=== PATIENT | female | born 1990 | race Caucasian/White ===

== ENCOUNTER 2021-06-27 11:17 | Emergency (ER) | payer OTHER ==
--- OUTSIDE RECORDS SUMMARY | 2021-06-27 11:19 | XMS REPORT | Continuity of Care Document ---
:1990 Author Organization [facility] t Address [address] [place] [place] [address] Care Team Providers Name Role Phone Dallas HAYS Attending Clinician Shalonda Rand MD Attending Clinician Problems This patient has no known problems. Allergies, Adverse Reactions, Alerts This patient has no known allergies or adverse reactions. Medications This patient has no known medications. Procedures This patient has no known procedures. Encounters Start End Encounter Admission Attending Care Care Encounter Source Date/Time Date/Time Type Type Clinicians Facility Department ID 2020-11-30 2020-11-30 Refill DILIP Haynes [id number] 00:00:00 00:00:00 Alejandra Granados [id number] [place] [id number] [place] [phone] nal 134 Building 2020-11-10 2020-11-10 Office Giorgi NHLUCHO [id number] 15:24:51 16:42:03 Visit Gladys Granados [id number] [place] [id number] [place] [phone] [facility] 134 [facility] Results This patient has no known results.
--- NOTE | 2021-06-27 17:16 | ER ---
Nurse's Notes [facility] Name: Cindi Cruz Age: 31 yrs Sex: Female : 1990 Arrival Date: 06/27/2021 Time: 11:20 Bed Waiting Private MD: Diagnosis: Presentation: 06/27 12:39 Chief complaint: Patient states: COVID + x 6 days, increased shortness of breath x 2 jl7 days. Coronavirus screen: Vaccine status: Patient reports being unvaccinated. cough unrelated to allergies, shortness of breath, Client presents with at least one sign or symptom that may indicate coronavirus-19. Standard/surgical mask placed on the client. Provider contacted for isolation considerations. Client reports previous positive COVID test result. Date of collection: June 22, 2021. Ebola Screen: No symptoms or risks identified at this time. Initial Sepsis Screen: Does the patient meet any 2 criteria? No. Patient's initial sepsis screen is negative. Does the patient have a suspected source of infection? No. Patient's initial sepsis screen is negative. Risk Assessment: Do you want to hurt yourself or someone else? Patient reports no desire to harm self or others. Onset of symptoms was June 23, 2021. 12:39 Method Of Arrival: Ambulatory jl7 12:39 Acuity: MIRANDA 3 jl7 Triage Assessment: 12:42 General: Appears in no apparent distress. uncomfortable, Behavior is calm, cooperative, jl7 appropriate for age. Pain: Denies pain. Neuro: Level of Consciousness is awake, alert, obeys commands, Oriented to person, place, time, situation. Cardiovascular: Patient's skin is warm and dry. Respiratory: Reports shortness of breath at rest cough that is Airway is patent Respiratory effort is even, unlabored, Respiratory pattern is regular, symmetrical, Onset: The symptoms/episode began/occurred x 5 days, Derm: Skin is pink, warm \T\ dry. BUSINESS TRANSFORMATION MANAGER: 12:42 LMP N/A - control method jl7 Historical: - Allergies: 12:42 PENICILLINS; jl7 - Home Meds: 12:42 Metformin Oral [Active]; Spironolactone Oral [Active]; Fluoxetine Oral [Active]; jl7 - PMHx: 12:42 PCOS; jl7 - PSHx: 12:42 Bilateral shoulders; jl7 - Immunization history:: Adult Immunizations up to date, Client reports having NOT received the Covid vaccine. - Social history:: Smoking status: Patient denies any tobacco usage or history of. Vital Signs: 12:39 BP 123 / 76; Pulse 93; Resp 17; Temp 98.5(O); Pulse Ox 94% on R/A; Weight 81.65 kg; jl7 Height 5 ft. 7 in. (170.18 cm); Pain 0/10; 12:39 Body Mass Index 28.19 (81.65 kg, 170.18 cm) jl ED Course: 11:20 Patient arrived in ED. am2 12:42 Triage completed. jl7 12:42 Arm band placed on right wrist. Patient placed in waiting room, Patient notified of [facility] wait time. 14:17 Note: XRAY CALLED OUT FOR THE PT MULTIPLE TIMES IN ED WAITING AREA, NO RESPONSE. md1 16:50 Patient's name was called from ER [facility] [employer] [employer]. No response. iw 16:59 [facility] fabian 16:59 Rupesh Alexander MD is Attending Physician. frank 17:10 Patient's name was called from ER [employer]. No response. iw Administered Medications: No medications were administered Outcome: 17:15 Patient left the ED. [facility] Signatures: Aníbal Hernandez PA PA jmm Williams, Irene, RN JAYDON iw Jia Bright RN RN jlRylee Chisholm am2 Aura Hays md1 Corrections: (The following items were deleted from the chart) 12:43 12:42 Allergies: No Known Allergies; [place] [id number] 12:43 12:42 Allergies: Tetanus Vaccines \T\ Toxoid; [place] [id number] 12:43 12:42 PMHx: Diabetes mellitus; [place] [id number]
[2021-06-27 17:48] VITALS: BP 123/76; TEMP 98.5; O2SAT 94
== END 2021-06-27 17:15 | disposition left against medical advice (07) ==
LOC: ER 11:17
DX: Z02.9 Encounter for administrative examinations, unspecified (principal)
CPT/HCPCS: 99281

== ENCOUNTER 2021-06-29 13:02 | Inpatient (IN) | payer OTHER ==
--- OUTSIDE RECORDS SUMMARY | 2021-06-29 13:05 | XMS REPORT | Continuity of Care Document ---
:[address] [facility] t Address [address] [place] [place] [address] Care Team Providers Name Role Phone Dallas [...] Department ID 2020-11-30 2020-11-30 Refill DILIP Haynes [id number] 00:00:00 00:00:00 Alejandra Granados [id number] [place] [id number] [place] [phone] nal 134 Building 2020-11-10 2020-11-10 Office Giorgi LALUCHO [id number] 15:24:51 16:42:03 Visit Gladys Granados [id number] [place] [id number] [place] [phone] [facility] 134 [facility] Results This patient has no known results.
[2021-06-29] MEDS ORDERED: ACETAMINOPHEN 500 MG TAB ONE (13:44)
--- NOTE | 2021-06-29 13:57 | RAD REPORT ---
EXAM DESCRIPTION: RAD - Chest Single View - 06/29/2021 1:49 pm CLINICAL HISTORY: DYSPNEA Chest pain. COMPARISON: Chest Pa And Lat (2 Views) dated 11/19/2019 FINDINGS: Portable technique limits examination quality. Moderate bilateral pulmonary opacities are present, greater on the right. Findings likely represent i nfection/pneumonia. The heart is normal in size. No displaced fractures.
[2021-06-29 14:11] LABS: Absolute Lymphocytes (CBC) 0.7 K/uL (0.7-4.9); Basophils % 0.5 % (0-1.3); Hematocrit 42.1 % (36.0-45.0); Lymphocytes % 16.4 % (15.3-44.8); MPV 7.8 fL (7.6-11.3); RBC Red Blood Cell Count 4.99 M/uL (3.86-4.86)
[2021-06-29 14:16] LABS: Protime INR 1.03
[2021-06-29 14:20] LABS: ALT/SGPT 22 U/L (12-78); AST/SGOT 27 U/L (15-37); Albumin 2.7 g/dL (3.4-5.0); Alkaline Phosphatase 33 U/L (45-117); BUN Blood Urea Nitrogen 6 mg/dL (7-18); Bicarbonate 28 mmol/L (21-32); Bilirubin Direct 0.2 mg/dL (0-0.2); Bilirubin Total 0.4 mg/dL (0.2-1.0); Glucose Level 106 mg/dL (74-106); Lipase 183 U/L (73-393); Potassium 3.4 mmol/L (3.5-5.1); Protein, Total 7.7 g/dL (6.4-8.2); Sodium Level 137 mmol/L (136-145)
[2021-06-29 14:37] LABS: Troponin (Emerg Dept Use Only) < 0.02 ng/mL (0.0-0.045)
--- NOTE | 2021-06-29 15:06 | RAD REPORT ---
EXAM DESCRIPTION: CT - Chest For Pe Angio - 06/29/2021 2:49 pm CLINICAL HISTORY: Chest pain. DYSPNEA COMPARISON: No comparisons TECHNIQUE: CT angiogram of the pulmonary arteries was performed with MIP. All CT scans are performed using dose optimization technique as appropriate and may include automated exposure control or mA/KV adjustment according to patient size. FINDINGS: No evidence of pulmonary thromboembolism. No acute aortic finding demonstrated. There is extensive airspace opacity bilaterally greatest in the lower lobes posteriorly most compatib le with pulmonary infection / pneumonia. No significant pericardial or pleural fluid. No concerning bony finding. IMPRESSION: No evidence of pulmonary thromboembolism. Extensive airspace opacity in both inferior lungs is most compatible with pulmonary infection.
--- NOTE | 2021-06-29 16:23 | ER ---
Nurse's Notes [facility] Name: Cindi Cruz Age: 31 yrs Sex: Female : 1990 Arrival Date: 06/29/2021 Time: 13:10 Bed 30 Private MD: Diagnosis: Coronavirus infection, unspecified;Pneumonia due to SARS-associated coronavirus;Hypoxia Presentation: 06/29 13:10 Chief complaint: EMS states: Diagnosed with COVID on in ED. O2 RA at home was ss 85%. Pt c/o lethargy and fatigue. 91% on 6L NC. 125 mg solu-medrol given en route to ED by EMS. Coronavirus screen: Client denies travel out of the [place] in the last 14 days. Ebola Screen: Patient denies exposure to infectious person. Patient denies travel to an Ebola-affected area in the 21 days before illness onset. Initial Sepsis Screen:. Risk Assessment: Do you want to hurt yourself or someone else? Patient reports no desire to harm self or others. Onset of symptoms was June 22, 2021. 13:10 Method Of Arrival: EMS: [facility] ss 13:10 Acuity: MIRANDA 2 ss 13:12 Care prior to arrival: IV initiated. 22 GA, in the left hand, Glucose check: 112. ss 13:27 Initial Sepsis Screen: Does the patient meet any 2 criteria? RR > 20 per min. No. ss Patient's initial sepsis screen is negative. Does the patient have a suspected source of infection? No. Patient's initial sepsis screen is negative. Historical: - Allergies: 13:12 PENICILLINS; ss - PMHx: 13:12 PCOS; ss - PSHx: 13:12 Bilateral shoulders; ss - Immunization history:: Adult Immunizations up to date, Client reports having NOT received the Covid vaccine. - Social history:: Smoking status: Patient denies any tobacco usage or history of. Screenin:13 Abuse screen: Denies threats or abuse. Denies injuries from another. Nutritional ld1 screening: No deficits noted. Tuberculosis screening: No symptoms or risk factors identified. Fall Risk None identified. Assessment: 13:13 General: Appears in no apparent distress. uncomfortable, Behavior is calm, cooperative, ld1 appropriate for age, drowsy. Pain: Denies pain. Neuro: Level of Consciousness is awake, alert, obeys commands, Oriented to person, place, time, situation, Appropriate for age. Cardiovascular: Capillary refill < 3 seconds Patient's skin is warm and dry. Rhythm is regular. Respiratory: Airway is patent Respiratory effort is even, labored, Respiratory pattern is regular, symmetrical, Breath sounds are diminished bilaterally. GI: Abdomen is flat, non-distended. : No signs and/or symptoms were reported regarding the genitourinary system. EENT: No signs and/or symptoms were reported regarding the EENT system. Derm: No signs and/or symptoms reported regarding the dermatologic system. Musculoskeletal: No signs and/or symptoms reported regarding the musculoskeletal system. 13:58 Reassessment: Patient appears in no apparent distress at this time. Patient and/or ld1 family updated on plan of care and expected duration. Pain level reassessed. 15:14 Reassessment: Patient appears in no apparent distress at this time. No changes from ld1 previously documented assessment. Patient and/or family updated on plan of care and expected duration. Pain level reassessed. Vital Signs: 13:13 BP 113 / 72; Pulse 83; Resp 22; Temp 99.6(O); Pulse Ox 89% on 6 lpm NC; Weight 79.83 ld1 kg; Height 5 ft. 7 in. (170.18 cm); Pain 0/10; 13:16 BP 113 / 72; Pulse 85; Resp 25; Temp 98.6(O); Pulse Ox 89% on 6 lpm NC; Weight 79.83 ss kg; Height 5 ft. 7 in. (170.18 cm); 13:58 BP 117 / 64; Pulse 83; Resp 22; Pulse Ox 90% on 10 lpm NC; ld1 15:14 BP 104 / 56; Pulse 67; Resp 20; Temp 98.7(O); Pulse Ox 94% on 10 lpm NC; ld1 13:16 Body Mass Index 27.57 (79.83 kg, 170.18 cm) ss 13:58 Pt on Hi Lance NC at 10LPM ld1 ED Course: 13:10 Patient arrived in ED. ss 13:11 Sendy Muñoz FNP-C is [facility]. kb 13:11 Rupesh Alexander MD is Attending Physician. kb 13:12 Triage completed. ss 13:12 Arm band placed on right wrist. ss 13:13 Patient has correct armband on for positive identification. Bed in low position. Call ld1 light in reach. Side rails up X2. engine monitor on. Pulse ox on. NIBP on. Door closed. Noise minimized. Warm blanket given. 13:13 No provider procedures requiring assistance completed. Maintain EMS IV. Dressing ld1 intact. Good blood return noted. Site clean \T\ dry. Gauge \T\ site: 20G LH. 13:13 Oxygen administration via nasal cannula \T\ 6L/min. ld1 13:49 CXR XRAY In Process Unspecified. EDMS 13:58 Inserted saline lock: 20 gauge in right antecubital area, using aseptic technique. ld1 Blood collected. 14:48 CT Chest For PE Angio In Process Unspecified. EDMS 16:21 Sumanth Woods MD is Hospitalizing Provider. kb 06/30 07:02 Quentin Smith, RN is Primary Nurse. bp Administered Medications: 06/29 13:28 Not Given (recieved prior to arrivall): SOLU-Medrol (methylPrednisoLONE) 125 mg IVP onceld1 Outcome: 16:22 Decision to Hospitalize by Provider. kb 06/30 16:17 Patient left the ED. iw Signatures: Dispatcher [employer] EDMS Sendy Muñoz, BRAND LEADER-C BRAND LEADER-Macie Leon, JAYDON INTERIANO Ashlyn Villarreal RN RN Quentin Smith, JAYDON INTERIANO bp Melly Canas, JAYDON RN ld1
--- NOTE | 2021-06-29 16:23 | EDPHYS ---
Physician Documentation [facility] Name: Cindi Cruz Age: 31 yrs Sex: Female : 1990 Arrival Date: 06/29/2021 Time: 13:10 Bed 30 Private MD: ED Physician Rupesh Alexander HPI: 06/29 15:38 This 31 yrs old Female presents to ER via EMS with complaints of Shortness Of kb Breath. 15:38 The patient has shortness of breath at rest. Duration: The symptoms are continuous. The kb patient has not experienced similar symptoms in the past. The patient has not recently seen a physician. 15:39 Onset: The symptoms/episode began/occurred 8 day(s) ago. The patient's shortness of kb breath is aggravated by nothing, is alleviated by nothing. Associated signs and symptoms: Pertinent positives: non-productive cough, fever. Severity of symptoms: At their worst the symptoms were moderate in the emergency department the symptoms are unchanged. Patient reports she was diagnosed with Covid on . Reports shortness of breath is gotten worse since then. EMS reports oxygen 85% on room air upon their arrival. Patient 88% on 6 L on initial assessment.. Historical: - Allergies: 13:12 PENICILLINS; ss - PMHx: 13:12 PCOS; ss - PSHx: 13:12 Bilateral shoulders; ss - Immunization history:: Adult Immunizations up to date, Client reports having NOT received the Covid vaccine. - Social history:: Smoking status: Patient denies any tobacco usage or history of. ROS: 15:38 Constitutional: Negative for fever, chills, and weight loss. kb 15:38 Respiratory: Positive for cough, dyspnea on exertion, shortness of breath, Negative for hemoptysis, orthopnea, pleurisy, sputum production, wheezing. 15:38 All other systems are negative. Exam: 15:38 Constitutional: This is a well developed, well nourished patient who is awake, alert, kb and in no acute distress. Head/Face: Normocephalic, atraumatic. ENT: Moist Mucous membranes Cardiovascular: Regular rate and rhythm with a normal S1 and S2. No gallops, murmurs, or rubs. No pulse deficits. Abdomen/GI: Soft, non-tender. No distention Skin: Warm, dry with normal turgor. Normal color. MS/ Extremity: Pulses equal, no cyanosis. Neurovascular intact. Full, normal range of motion. Neuro: Awake and alert, GCS 15, oriented to person, place, time, and situation. Moves all extremities. Normal gait. Psych: Awake, alert, with orientation to person, place and time. Behavior, mood, and affect are within normal limits. 15:38 Respiratory: moderate respiratory distress is noted, Respirations: labored breathing, Breath sounds: are clear throughout. Vital Signs: 13:13 BP 113 / 72; Pulse 83; Resp 22; Temp 99.6(O); Pulse Ox 89% on 6 lpm NC; Weight 79.83 ld1 kg; Height 5 ft. 7 in. (170.18 cm); Pain 0/10; 13:16 BP 113 / 72; Pulse 85; Resp 25; Temp 98.6(O); Pulse Ox 89% on 6 lpm NC; Weight 79.83 ss kg; Height 5 ft. 7 in. (170.18 cm); 13:58 BP 117 / 64; Pulse 83; Resp 22; Pulse Ox 90% on 10 lpm NC; ld1 15:14 BP 104 / 56; Pulse 67; Resp 20; Temp 98.7(O); Pulse Ox 94% on 10 lpm NC; ld1 13:16 Body Mass Index 27.57 (79.83 kg, 170.18 cm) ss 13:58 Pt on Hi Lance NC at 10LPM ld1 MDM: 13:11 Patient medically screened. 13:31 Data reviewed: vital signs, nurses notes. Data interpreted: Pulse oximetry: on room air abdullahi Interpretation: hypoxia. Plan: O2 by NC applied. ED course: Pt placed on High Flow O2. Pt 93% on 10L. 15:25 Counseling: I had a detailed discussion with the patient and/or guardian regarding: the historical points, exam findings, and any diagnostic results supporting the discharge/admit diagnosis, lab results, radiology results, the need to transfer to another facility, no covid bed available. 16:20 Physician consultation: Juan C LUKE was contacted at 16:20, regarding admission, patient's condition, and will see patient in ED, shortly. ED course: No COVID ICU at [facility]. . 06/29 13:14 Order name: BMP kb 06/29 13:14 Order name: Blood Culture Adult (2) kb 06/29 13:14 Order name: C-Reactive Protein kb 06/29 13:14 Order name: CBC with Diff kb 06/29 13:14 Order name: D-Dimer; Complete Time: 14:28 kb 06/29 13:14 Order name: Ferritin; Complete Time: 16:32 kb 06/29 13:14 Order name: LFT's; Complete Time: 16:32 kb 06/29 13:14 Order name: Lactate; Complete Time: 16:05 kb 06/29 13:14 Order name: Lipase; Complete Time: 16:32 kb 06/29 13:14 Order name: PT-INR; Complete Time: 14:28 kb 06/29 13:14 Order name: Procalcitonin; Complete Time: 14:50 kb 06/29 13:14 Order name: Ptt, Activated; Complete Time: 14:28 kb 06/29 13:14 Order name: Troponin (emerg Dept Use Only); Complete Time: 16:32 kb 06/29 13:15 Order name: Basic Metabolic Panel; Complete Time: 16:32 EDMS 06/29 13:14 Order name: BIPAP: High flow kb 06/29 13:14 Order name: CXR XRAY; Complete Time: 13:58 kb 06/29 13:14 Order name: EKG; Complete Time: 13:15 kb 06/29 13:15 Order name: Blood Culture EDMS 06/29 13:15 Order name: C-Reactive Protein; Complete Time: 16:32 EDMS 06/29 13:15 Order name: CBC with Automated Diff; Complete Time: 14:17 EDMS 06/29 14:28 Order name: CT Chest For PE Angio; Complete Time: 15:16 kb 06/29 16:32 Order name: CONS Physician Consult EDMS 06/29 21:34 Order name: Lactate Sepsis 2 HR Follow-up; Complete Time: 07:10 EDMS 06/30 04:43 Order name: CBC with Automated Diff; Complete Time: 07:10 EDMS 06/30 05:09 Order name: Basic Metabolic Panel; Complete Time: 07:10 EDMS 06/30 05:09 Order name: Lipid Profile; Complete Time: 07:10 EDMS 06/30 05:09 Order name: C-Reactive Protein; Complete Time: 07:10 EDMS 06/30 05:09 Order name: Ferritin; Complete Time: 07:10 EDMS 06/29 13:14 Order name: Droplet/Contact Precautions; Complete Time: 13:18 kb 06/29 13:14 Order name: EKG - Nurse/Tech; Complete Time: 13:51 kb 06/29 13:14 Order name: IV Start; Complete Time: 13:18 kb 06/29 13:14 Order name: Labs collected and sent; Complete Time: 13:28 kb 06/29 13:14 Order name: O2 Per Protocol; Complete Time: 13:18 kb 06/29 13:14 Order name: O2 Sat Monitoring; Complete Time: 13:18 kb Administered Medications: 13:28 Not Given (recieved prior to arrivall): SOLU-Medrol (methylPrednisoLONE) 125 mg IVP onceld1 Disposition Summary: 06/29/21 16:22 Hospitalization Ordered Hospitalization Status: Inpatient Admission kb Provider: Sumanth Woods Condition: Stable kb Problem: new kb Symptoms: are unchanged kb Bed/Room Type: Standard kb Location: Telemetry/MedSurg (Inpatient)(06/30/21 12:55) iw Room Assignment: 417(06/30/21 12:55) iw Diagnosis - Coronavirus infection, unspecified kb - Pneumonia due to SARS-associated coronavirus kb - Hypoxia kb Forms: - Medication Reconciliation Form kb - SBAR form kb Addendum: 07/03/2021 15:07 Co-signature as Attending Physician, Rupesh Alexander MD I agree with the assessment and c urena plan of care. Signatures: Dispatcher [employer] EDCT Sendy Muñoz FNP-C CALL CENTER AGENT-CkRupesh Jackson MD MD cha Williams, Irene, RN JAYDON Ashlyn Villarreal, JAYDON INTERIANO ss Juan C Mckeon PA PA [id number] Anastasia Brand RN RN Melly Canas RN RN ld1 Corrections: (The following items were deleted from the chart) 06/29 15:40 15:39 Patient reports she was diagnosed with Covid on . Reports shortness of kb breath is gotten worse since then.. kb 20:17 16:22 Telemetry/MedSurg (Inpatient) kb 20:17 16:22 kb 06/30 12:06/29 20:17 [facility] ER HOLD cg iw 06/30 1206/29 20:17 ERHOLD- cg iw
[2021-06-29 16:25] LABS: Ferritin 286.2 ng/mL (8-388)
--- NOTE | 2021-06-29 16:43 | P.HP ---
Certification for Inpatient Patient admitted to: Inpatient With expected LOS: >2 Midnights Patient will require the following post-hospital care: Other (Home oxygen) Practitioner: I am a practitioner with admitting privileges, knowledge of patient current condition, hospital course, and medical plan of care. Services: Services provided to patient in accordance with Admission requirements found in Title 42 Section 412.3 of the Code of Federal Regulations Patient History Date of Service: 06/29/21 Primary Care Provider: Colrain Erik Reason for admission: Covid pneumonia with hypoxia History of Present Illness: This is a 31-year-old female that presented to the emergency room with increased shortness of breath over the last several days. Was diagnosed with Covid this past and since then has been getting progressively worse. Patient upon arrival to the emergency room was 85% room air. Patient was put on oxygen and worked up for Covid. Was found to have Covid pneumonia on both chest x-ray and CT without evidence of pulmonary embolism. Labs revealed a sodium of 137, potassium 3.4, chloride 102, bicarb 28, BUN 6, creatinine 0.81, glucose 106. Patient had a white cell count of 4.4, hemoglobin of 14.2, hematocrit 42.1, platelet 193. D-dimer was 915, CRP was 110, lactate 3.3. On nasal cannula therapy patient remained in the high 80s. Patient was placed on high flow oxygen at that time with marked improvement into the mid 90s. Medicine was consult that time for admission. Review of Systems General: Fever, Chills Eyes: Unremarkable ENT: Unremarkable Respiratory: Cough, Shortness of Breath, SOB with Excertion Cardiovascular: Unremarkable Gastrointestinal: Vomiting Musculoskeletal: Unremarkable Integumentary: Unremarkable Neurological: Unremarkable Lymphatics: Unremarkable Physical Examination - Vital Signs Temperature: 99.6 F Blood Pressure: 113/72 Pulse: 83 Respirations: 26 Pulse Ox (%): 85 (Room air) - Physical Exam General: Alert, Cooperative, Mild distress HEENT: Normocephalic, PERRLA, Mucous membr. moist/pink, EOMI Neck: Supple, 2+ carotid pulse no bruit, JVD not distended Respiratory: Clear to auscultation bilaterally Cardiovascular: No edema, Normal pulses, Regular rate/rhythm, Normal S1 S2, No gallops, No rubs, No murmurs Capillary refill: <2 Seconds Gastrointestinal: Normal bowel sounds, Soft and benign, Non-distended, No ascites, No tenderness, No masses, No rebound, No guarding Musculoskeletal: No clubbing, No swelling, No contractures, No erythema, No tenderness, No warmth Integumentary: No rashes, No breakdown, No significant lesion, No tenderness/swelling, No erythema, No warmth, No cyanosis Neurological: Normal speech, Normal strength at 5/5 x4 extr, Normal tone, Sensation intact, Cranial nerves 3-12 intact, Normal affect Lymphatics: No axilla or inguinal lymphadenopathy - Studies Laboratory Data (last 24 hrs) 06/29/21 13:46: PT 11.9, INR 1.03, APTT 33.5 06/29/21 13:46: WBC 4.40, Hgb 14.2, Hct 42.1, Plt Count 193 06/29/21 13:46: Sodium 137, Potassium 3.4 L, BUN 6 L, Creatinine 0.81, Glucose 106, Total Bilirubin 0.4, AST 27, ALT 22, Alkaline Phosphatase 33 L, Lipase 183 Assessment and Plan - Problems (Diagnosis) (1) Pneumonia due to COVID-19 virus Current Visit: Yes Status: Acute (2) Hypoxia Current Visit: Yes Status: Acute - Plan 1. Patient will be admitted to the Covid telemetry floor for further monitoring of her oxygen status. Patient will remain on high flow oxygen and then weaned as she improves or escalate if she does not. 2. Pulmonology consulted for the Covid pneumonia with hypoxia. Will let them determine if she is candidate for Biologics. 3. We will continue to monitor vitals and pulse oximetry. Labs drawn daily and will trend her lactate and inflammatory markers. 4. Patient put on vitamin regimen for Covid along with steroids and anticoagulants 5. If patient does well over the next couple days hopefully will be able to transition home with home oxygen. Discharge Plan: Home Plan to discharge in: 48 Hours - Advance Directives Does patient have a Living Will: No Does patient have a Durable POA for Healthcare: No - Code Status/Comfort Care Code Status Assessed: Yes Code Status: Full Code Critical Care: No
[2021-06-29 18:33] VITALS: BMI 29.1
[2021-06-29] MEDS ORDERED: ACETAMINOPHEN 325 MG TABLET ONE (19:12)
[2021-06-29] MEDS ORDERED: ASCORBIC ACID 500 MG TABLET ONE (19:12)
[2021-06-29] MEDS ORDERED: MELATONIN 5 MG TABLET PO ONE (19:12)
[2021-06-29] MEDS ORDERED: METHYLPREDNISOLONE 40 MG INJ ONE (19:13)
[2021-06-29] MEDS ORDERED: APIXABAN 5 MG TABLET ONE (19:13)
[2021-06-29] MEDS: MELATONIN 5 MG TABLET PO SCH (20:20)
[2021-06-29] MEDS: APIXABAN 5 MG TABLET PO SCH (20:20)
[2021-06-29] MEDS: ASCORBIC ACID 500 MG TABLET PO SCH (20:20)
[2021-06-29] MEDS: METHYLPREDNISOLONE 125 MG INJ IV SCH (20:20)
[2021-06-29] MEDS: ACETAMINOPHEN 325 MG TABLET PO PRN (20:21)
[2021-06-30 04:23] LABS: Absolute Lymphocytes (CBC) 0.7 K/uL (0.7-4.9); Basophils % 0.7 % (0-1.3); Hematocrit 41.4 % (36.0-45.0); Lymphocytes % 16.5 % (15.3-44.8); MPV 7.6 fL (7.6-11.3); RBC Red Blood Cell Count 4.96 M/uL (3.86-4.86)
[2021-06-30 05:09] LABS: BUN Blood Urea Nitrogen 7 mg/dL (7-18); Bicarbonate 25 mmol/L (21-32); Ferritin 286.8 ng/mL (8-388); Glucose Level 149 mg/dL (74-106); HDL Cholesterol 45 mg/dL (40-60); LDL Cholesterol, Calculated 55 (<130); Potassium 3.9 mmol/L (3.5-5.1); Sodium Level 138 mmol/L (136-145)
--- NOTE | 2021-06-30 07:44 | EKG ---
Test Date: 2021-06-29 Test Time: 13:37:26 Associate Designer: HERIBERTO MEASUREMENT RESULTS: Intervals: Rate: 78 TX: 136 QRSD: 84 QT: 388 QTc: 442 [place]: P: 49 TX: 136 QRS: 33 T: 35 INTERPRETIVE STATEMENTS: Normal sinus rhythm Normal ECG No previous ECG available for comparison Electronically Signed On 06-30-21 07:41:59 CDT by Thee Shabazz
[2021-06-30] MEDS: APIXABAN 5 MG TABLET PO SCH ×2 (08:14→21:25)
[2021-06-30] MEDS: ASCORBIC ACID 500 MG TABLET PO SCH ×3 (08:15→21:25)
[2021-06-30] MEDS: METHYLPREDNISOLONE 125 MG INJ IV SCH ×2 (08:15→21:26)
[2021-06-30] MEDS: VITAMIN D 5,000 UNIT CAP PO SCH (08:16)
[2021-06-30] MEDS ORDERED: APIXABAN 5 MG TABLET ONE (08:26)
[2021-06-30] MEDS ORDERED: ZINC SULFATE 220 MG CAP ONE (08:26)
[2021-06-30] MEDS ORDERED: ASCORBIC ACID 500 MG TABLET ONE ×2 (08:26→16:21)
[2021-06-30] MEDS: ZINC SULFATE 220 MG CAP PO SCH (08:26)
[2021-06-30] MEDS: BARICITINIB 2 MG TABLET PO SCH (08:26)
[2021-06-30] MEDS ORDERED: METHYLPREDNISOLONE 40 MG INJ ONE (08:27)
[2021-06-30] MEDS ORDERED: VITAMIN D 1000 UNIT TAB ONE (08:27)
--- NOTE | 2021-06-30 13:37 | P.CNS ---
Date of Consult: 06/30/21 Primary Care Provider: [facility] Chief Complaint: Covid pneumonia with hypoxia History of Present Illness: Patient is 31 years of age admitted with coronavirus pneumonia she is fairly hypoxic h Allergies Penicillins Allergy (Verified 06/29/21 18:35) Anaphylaxis Home Medications: NK [No Home Meds] 06/30/21 Review of Systems General: Weakness Respiratory: Shortness of Breath Physical Examination Temp Pulse Resp BP Pulse Ox 97.2 F 67 20 113/68 88 L 06/30/21 04:00 06/30/21 08:00 06/30/21 04:00 06/30/21 08:00 06/30/21 08:00 General: Alert, Oriented x3, Cooperative, Mild distress Laboratory Data (last 24 hrs) 06/29/21 13:46: PT 11.9, INR 1.03, APTT 33.5 06/29/21 13:46: WBC 4.40, Hgb 14.2, Hct 42.1, Plt Count 193 06/29/21 13:46: Sodium 137, Potassium 3.4 L, BUN 6 L, Creatinine 0.81, Glucose 106, Total Bilirubin 0.4, AST 27, ALT 22, Alkaline Phosphatase 33 L, Lipase 183 - Problems (1) Pneumonia due to COVID-19 virus Current Visit: Yes Status: Acute Plan: Patient is 31 years of age admitted with coronavirus pneumonia agree with steroids and Barcitinib CT scan has diffuse bilateral pneumonia labs reviewed
--- NOTE | 2021-06-30 16:26 | P.PN ---
Subjective Date of Service: 06/30/21 Primary Care Provider: Dorie Valencia Chief Complaint: Covid pneumonia with hypoxia Subjective: No new changes (Feels slightly better, requiring high levels of oxygen. Feels very weak and dyspneic with movement) Review of Systems 10-point ROS is otherwise unremarkable Physical Examination - Vital Signs Temperature: 97.2 F Blood Pressure: 113/68 Pulse: 67 Respirations: 20 Pulse Ox (%): 88 Assessment & Plan Physician Review Additional Text: Physical exam GEN: Alert, oriented, NAD HEENT: Normal conjunctiva, sclera anicteric CV: Regular rate and rhythm, no edema Pulm: Mildly labored respirations on 15 L nasal cannula ABD: Soft, nontender, nondistended Neuro: Normal speech, normal affect Problem list Acute hypoxemic respiratory failure secondary to COVID-19 pneumonia Continue treatment per protocol, IV steroids, vitamin supplementation, oxygen supplementation Wean O2 as tolerated Significantly elevated inflammatory markers Pulmonology consulted Baricitinib ordered, patient required high flow nasal cannula, high CRP Code: full Dispo: anticipate dc home in 4-6 days Time Spent Managing Pts Care (In Minutes): 40
[2021-06-30] MEDS: MELATONIN 5 MG TABLET PO SCH (21:25)
[2021-07-01 05:59] LABS: Absolute Lymphocytes (CBC) 1.1 K/uL (0.7-4.9); Basophils % 0.1 % (0-1.3); Hematocrit 40.1 % (36.0-45.0); Lymphocytes % 12.1 % (15.3-44.8); MPV 7.5 fL (7.6-11.3); RBC Red Blood Cell Count 4.75 M/uL (3.86-4.86)
--- NOTE | 2021-07-01 06:12 | P.PN ---
Subjective Date of Service: 07/01/21 Primary Care Provider: [facility] Chief Complaint: Covid pneumonia with hypoxia Subjective: Improving (Feels like she is breathing better, no new complaints) Review of Systems 10-point ROS is otherwise unremarkable Physical Examination - Vital Signs Temperature: 97.2 F Blood Pressure: 107/62 Pulse: 62 Respirations: 19 Pulse Ox (%): 91 Assessment & Plan Physician Review Additional Text: Physical exam GEN: Alert, oriented, NAD HEENT: Normal conjunctiva, sclera anicteric CV: Regular rate and rhythm, no edema Pulm: Mildly labored respirations on 15 L nasal cannula ABD: Soft, nontender, nondistended Neuro: Normal speech, normal affect Problem list Acute hypoxemic respiratory failure secondary to COVID-19 pneumonia Continue treatment per protocol, IV steroids, vitamin supplementation, oxygen supplementation Wean O2 as tolerated Significantly elevated inflammatory markers - improving Pulmonology consulted Baricitinib ordered, patient required high flow nasal cannula, high CRP Code: full Dispo: anticipate dc home in 4-6 days Time Spent Managing Pts Care (In Minutes): 35
[2021-07-01 06:26] LABS: BUN Blood Urea Nitrogen 16 mg/dL (7-18); Bicarbonate 29 mmol/L (21-32); Ferritin 277.2 ng/mL (8-388); Glucose Level 131 mg/dL (74-106); Potassium 4.2 mmol/L (3.5-5.1); Sodium Level 139 mmol/L (136-145)
[2021-07-01] MEDS: VITAMIN D 5,000 UNIT CAP PO SCH (08:45)
[2021-07-01] MEDS: ASCORBIC ACID 500 MG TABLET PO SCH ×3 (08:45→19:59)
[2021-07-01] MEDS: APIXABAN 5 MG TABLET PO SCH ×2 (08:45→19:59)
[2021-07-01] MEDS: ZINC SULFATE 220 MG CAP PO SCH (08:45)
[2021-07-01] MEDS: BARICITINIB 2 MG TABLET PO SCH (08:45)
[2021-07-01] MEDS: METHYLPREDNISOLONE 125 MG INJ IV SCH ×2 (08:45→19:58)
--- NOTE | 2021-07-01 13:01 | P.PN ---
Subjective Date of Service: 07/01/21 Primary Care Provider: [facility] Chief Complaint: Covid pneumonia with hypoxia Condition stable still on high flow oxygen Review of Systems 10-point ROS is otherwise unremarkable Physical Examination - Vital Signs Temperature: 97.5 F Blood Pressure: 117/72 Pulse: 62 Respirations: 20 Pulse Ox (%): 93 - Physical Exam General: Alert, Oriented x3, Cooperative Assessment & Plan - Problems (Diagnosis) (1) Pneumonia due to COVID-19 virus Current Visit: Yes Status: Acute Plan: Respiratory failure subjectively feeling better currently on high flow oxygen labs and vital signs reviewed on maximal therapy
[2021-07-01] MEDS: FENOFIBRATE 160 MG TAB PO SCH (13:50)
[2021-07-01] MEDS: MELATONIN 5 MG TABLET PO SCH (19:59)
[2021-07-02 05:56] LABS: Absolute Lymphocytes (CBC) 1.4 K/uL (0.7-4.9); Basophils % 0.1 % (0-1.3); Hematocrit 41.2 % (36.0-45.0); Lymphocytes % 17.2 % (15.3-44.8); MPV 7.7 fL (7.6-11.3); RBC Red Blood Cell Count 4.88 M/uL (3.86-4.86)
[2021-07-02 06:23] LABS: BUN Blood Urea Nitrogen 21 mg/dL (7-18); Bicarbonate 28 mmol/L (21-32); C-Reactive Protein 8.59 mg/L (<3.00); Ferritin 198.7 ng/mL (8-388); Glucose Level 120 mg/dL (74-106); Potassium 4.5 mmol/L (3.5-5.1); Sodium Level 138 mmol/L (136-145)
--- NOTE | 2021-07-02 06:44 | P.PN ---
Subjective Date of Service: 07/02/21 Primary Care Provider: [facility] Chief Complaint: Covid pneumonia with hypoxia Subjective: Improving (Feeling better, less dyspneic on exertion) Review of Systems 10-point ROS is otherwise unremarkable Physical Examination - Vital Signs Temperature: 97 F Blood Pressure: 154/74 Pulse: 50 Respirations: 19 Pulse Ox (%): 93 Assessment & Plan Physician Review Additional Text: Physical exam GEN: Alert, oriented, NAD HEENT: Normal conjunctiva, sclera anicteric CV: Regular rate and rhythm, no edema Pulm: Mildly labored respirations on 10 L nasal cannula ABD: Soft, nontender, nondistended Neuro: Normal speech, normal affect Problem list Acute hypoxemic respiratory failure secondary to COVID-19 pneumonia Continue treatment per protocol, IV steroids, vitamin supplementation, oxygen supplementation Wean O2 as tolerated Significantly elevated inflammatory markers - improving Pulmonology consulted Baricitinib ordered, patient required high flow nasal cannula, high CRP feels better today Code: full Dispo: anticipate dc home in 4-6 days Time Spent Managing Pts Care (In Minutes): 35
[2021-07-02] MEDS: ASCORBIC ACID 500 MG TABLET PO SCH ×3 (08:12→19:38)
[2021-07-02] MEDS: ZINC SULFATE 220 MG CAP PO SCH (08:12)
[2021-07-02] MEDS: FLUOXETINE 10 MG CAP PO SCH (08:12)
[2021-07-02] MEDS: BARICITINIB 2 MG TABLET PO SCH (08:12)
[2021-07-02] MEDS: APIXABAN 5 MG TABLET PO SCH ×2 (08:12→19:38)
[2021-07-02] MEDS: METHYLPREDNISOLONE 125 MG INJ IV SCH ×2 (08:12→19:38)
[2021-07-02] MEDS: FENOFIBRATE 160 MG TAB PO SCH (08:12)
[2021-07-02] MEDS: VITAMIN D 5,000 UNIT CAP PO SCH (08:12)
[2021-07-02] MEDS: METFORMIN HCL 500 MG TAB PO SCH (08:12)
[2021-07-02] MEDS: SPIRONOLACTONE 100 MG TAB PO SCH (08:13)
[2021-07-02] MEDS: NORGEST PO SCH (08:13)
[2021-07-02] MEDS: E ESTRADIOL E ESTRAD PO SCH (08:13)
[2021-07-02] MEDS: [UNRECOGNIZED DRUG - OTHER] PO SCH (08:13)
[2021-07-02] MEDS: ACETAMINOPHEN 325 MG TABLET PO PRN (16:37)
[2021-07-02] MEDS: MELATONIN 5 MG TABLET PO SCH (19:38)
[2021-07-03 05:51] LABS: Absolute Lymphocytes (CBC) 1.7 K/uL (0.7-4.9); Basophils % 0.1 % (0-1.3); Hematocrit 42.7 % (36.0-45.0); Lymphocytes % 21.6 % (15.3-44.8); MPV 7.6 fL (7.6-11.3); RBC Red Blood Cell Count 5.08 M/uL (3.86-4.86)
[2021-07-03 06:08] LABS: C-Reactive Protein 5.71 mg/L (<3.00); Ferritin 171.7 ng/mL (8-388); Potassium 4.6 mmol/L (3.5-5.1)
[2021-07-03 07:53] VITALS: O2SAT 98
[2021-07-03] MEDS: [UNRECOGNIZED DRUG - OTHER] PO SCH (08:35)
[2021-07-03] MEDS: SPIRONOLACTONE 100 MG TAB PO SCH (08:35)
[2021-07-03] MEDS: E ESTRADIOL E ESTRAD PO SCH (08:35)
[2021-07-03] MEDS: FLUOXETINE 10 MG CAP PO SCH (08:35)
[2021-07-03] MEDS: ASCORBIC ACID 500 MG TABLET PO SCH ×2 (08:35→14:00)
[2021-07-03] MEDS: NORGEST PO SCH (08:35)
[2021-07-03] MEDS: BARICITINIB 2 MG TABLET PO SCH (08:35)
[2021-07-03] MEDS: VITAMIN D 5,000 UNIT CAP PO SCH (08:36)
[2021-07-03] MEDS: ZINC SULFATE 220 MG CAP PO SCH (08:36)
[2021-07-03] MEDS: METFORMIN HCL 500 MG TAB PO SCH (08:36)
[2021-07-03] MEDS: FENOFIBRATE 160 MG TAB PO SCH (08:36)
[2021-07-03] MEDS: METHYLPREDNISOLONE 125 MG INJ IV SCH (08:36)
[2021-07-03] MEDS: APIXABAN 5 MG TABLET PO SCH (08:36)
[2021-07-03] MEDS: ACETAMINOPHEN 325 MG TABLET PO PRN (10:42)
[2021-07-03 12:32] VITALS: BP 99/55; TEMP 97.8
--- NOTE | 2021-07-03 13:03 | P.DS ---
Admission Date: 06/29/21 Discharge Date: 07/03/21 Primary Care Provider: [facility] Disposition: ROUTINE DISCHARGE Discharge Condition: GOOD Reason for Admission: Covid pneumonia with hypoxia Consultations: Pulmonology Dr. Dang Procedures: CXR (06/29): Moderate bilateral pulmonary opacities are present, greater on the right. Findings likely represent infection/pneumonia. The heart is normal in size. No displaced fractures. CTA chest (06/29): FINDINGS: No evidence of pulmonary thromboembolism. No acute aortic finding demonstrated. There is extensive airspace opacity bilaterally greatest in the lower lobes posteriorly most compatible with pulmonary infection / pneumonia. No significant pericardial or pleural fluid. No concerning bony finding. IMPRESSION: No evidence of pulmonary thromboembolism. Extensive airspace opacity in both inferior lungs is most compatible with pulmonary infection. Problem list Acute hypoxemic respiratory failure secondary to COVID-19 pneumonia PCOS Brief History of Present Illness: 31-year-old female, PMH: PCOS, presents to ED with progressively worsening shortness of breath over the last several days. Diagnosed with Covid ~1 week prior. In the ED, she was noted to be hypoxic, found to have moderate Covid 19 pneumonia findings on chest x-ray. Patient is admitted for further management. CRP: 110, D-dimer: 915. She was initially placed on high flow nasal cannula in the ED. Hospital Course: Patient symptoms improved with treatment with steroids, vitamin supplementation, oxygen supplementation. She additionally received baricitinib. She was weaned down to 3 L nasal cannula and was breathing more comfortably, ambulating to the bathroom, and tolerating her diet. She was discharged home to continue this treatment with prednisone, vitamin supplementation, daily 81 mg aspirin, and ho me oxygen. CRP improved to 5.71, ferritin remained WNL and decreased to 171. To follow-up with Dr. Dang in 1 week. Vital Signs/Physical Exam: Physical exam GEN: Alert, oriented, NAD HEENT: Normal conjunctiva, sclera anicteric CV: Regular rate and rhythm, no edema Pulm: Nonlabored respirations on 3 L nasal cannula ABD: Soft, nontender, nondistended Neuro: Normal speech, normal affect Temp Pulse Resp BP Pulse Ox 97.8 F 56 20 99/55 L 96 07/03/21 12:00 07/03/21 12:07/03/21 12:07/03/21 12:00 07/03/21 12:00 Laboratory Data at Discharge: WBC 7.70 K/uL (4.3-10.9) 07/03/21 04:57 Hgb 14.4 g/dL (12.0-15.0) 07/03/21 04:57 Hct 42.7 % (36.0-45.0) 07/03/21 04:57 Plt Count 326 K/uL (152-406) 07/03/21 04:57 PT 11.9 SECONDS (9.5-12.5) 06/29/21 13:46 INR 1.03 06/29/21 13:46 APTT 33.5 SECONDS (24.3-36.9) 06/29/21 13:46 Sodium 138 mmol/L (136-145) 07/03/21 04:57 Potassium 4.6 mmol/L (3.5-5.1) 07/03/21 04:57 BUN 21 mg/dL (7-18) H 07/03/21 04:57 Creatinine 0.76 mg/dL (0.55-1.3) 07/03/21 04:57 Glucose 114 mg/dL (74-106) H 07/03/21 04:57 Total Bilirubin 0.4 mg/dL (0.2-1.0) 06/29/21 13:46 AST 27 U/L (15-37) 06/29/21 13:46 ALT 22 U/L (12-78) 06/29/21 13:46 Alkaline Phosphatase 33 U/L (45-117) L 06/29/21 13:46 Triglycerides 181 mg/dL (<150) H 06/30/21 04:12 Cholesterol 136 mg/dL (<200) 06/30/21 04:12 HDL Cholesterol 45 mg/dL (40-60) 06/30/21 04:12 Cholesterol/HDL Ratio 3.02 06/30/21 04:12 Lipase 183 U/L (73-393) 06/29/21 13:46 Home Medications: Fluoxetine HCl 1 tab PO DAILY 07/01/21 Metformin HCl 1 tab PO DAILY 07/01/21 Spironolactone 1 tab PO DAILY 07/01/21 l-Norgest/E.estradiol-E.estrad [Ashlyna 0.15-0.03-0.01 mg Tab] 1 tab PO DAILY 07/01/21 Ascorbic Acid [Vitamin C*] 1,000 mg PO TID 30 Days #120 tablet 07/03/21 Aspirin [Aspirin EC 81 MG] 81 mg PO DAILY 30 Days #30 tablet. 07/03/21 Benzonatate [Tessalon Perle] 100 mg PO TID 7 Days #21 cap 07/03/21 Cholecalciferol (Vitamin D3) [Vitamin D 5,000 IU Cap*] 5,000 unit PO DAILY 30 Days #30 cap 07/03/21 predniSONE [Prednisone] 20 mg PO SEECOM 14 Days #21 tablet 07/03/21 New Medications: Aspirin [Aspirin EC 81 MG] 81 mg PO DAILY 30 Days #30 tablet. predniSONE [Prednisone] 20 mg PO SEECOM 14 Days #21 tablet Benzonatate [Tessalon Perle] 100 mg PO TID 7 Days #21 cap Ascorbic Acid [Vitamin C*] 1,000 mg PO TID 30 Days #120 tablet Cholecalciferol (Vitamin D3) [Vitamin D 5,000 IU Cap*] 5,000 unit PO DAILY 30 Days #30 cap Physician Discharge Instructions: You were found to have COVID-19 pneumonia. You had improvement with steroids, vitamin supplementation, and oxygen supplementation. You are discharged home to continue with this treatment. Recommend taking 81mg aspirin daily for 30 days. 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 Call his office to schedule the appointment. Recommend quarantining for an additional 7 days. PROBLEM: COVID GOAL: decrease symptoms INSTRUCTIONS:coninuw with O2, follow up with Primary and Lung doctor. Take medications as prescribed Diet: Regular Activity: Ad jerry DME DME:Oxygen Date Ordered: Name of Company: [facility] [employer] Services Needed: Name of Company: Date or Referral: IMMUNIZATION Influenza Vaccine Indicated: Influenza Vaccine Given: Date Given: Pneumonia Vaccine Indicated: No Pneumonia Vaccine Given: Date Given: Diet: Regular Activity: Ad jerry Followup: NONE,NONE [Primary Care Provider] - Time spent managing pt's care (in minutes): 45
== END 2021-07-03 15:10 | disposition home or self-care (01) | DRG 177 ==
LOC: ER 13:02 → ERHOLD 16:31 → 4TH 06-30 14:59
PROVIDERS: ADMIT Hospitalist; ATTEND Hospitalist
DX: U07.1 COVID-19 (principal); J12.82 Pneumonia due to coronavirus disease 2019; J96.01 Acute respiratory failure with hypoxia; E28.2 Polycystic ovarian syndrome; Z88.0 Allergy status to penicillin
CPT/HCPCS: 36415; 71045; 71275; 80048; 80061; 80076; 82728; 82947; 83605; 83690; 84145; 84484; 85025; 85379; 85610; 85730; 86140; 87040; 93005; 94760; 99281; 99285; J2920; J2930; Q9967

== ENCOUNTER 2021-07-11 08:28 | Emergency (ER) | payer OTHER ==
--- OUTSIDE RECORDS SUMMARY | 2021-07-11 08:31 | XMS REPORT | Continuity of Care Document ---
:1990 Author Organization [facility] t Address [address] [place] [place] [address] Care Team Providers Name Role Phone [place] [...] Department ID 2020-11-30 2020-11-30 Refill DILIP Haynes [id number] 00:00:00 00:00:00 Alejandra Granados [id number] [place] [id number] [place] [id number] [address] 2020-11-10 2020-11-10 Office DILIP Rand [id number] 15:24:51 16:42:03 Visit Gladys Granados [id number] [place] [id number] Proflalit [phone] [facility] [address] [facility] Results This patient has no known results.
[2021-07-11 09:57] LABS: Absolute Lymphocytes (CBC) 5.6 K/uL (0.7-4.9); Basophils % 0.2 % (0-1.3); Hematocrit 39.8 % (36.0-45.0); Lymphocytes % 46.4 % (15.3-44.8); MPV 7.9 fL (7.6-11.3); RBC Red Blood Cell Count 4.68 M/uL (3.86-4.86)
--- NOTE | 2021-07-11 10:01 | RAD REPORT ---
EXAM DESCRIPTION: US - Extrem Venous W Compress Renaldo - 07/11/2021 9:45 am CLINICAL HISTORY: PAIN Bilateral leg edema and swelling. COMPARISON: No comparisons TECHNIQUE: Real-time sonographic interrogation of the left and right lower extremity deep venous sys tems was performed. FINDINGS: Normal compressibility, flow augmentation, phasic flow and spontaneous flow is identified in both the left and right lower extremity deep venous systems. IMPRESSION: No sonographic evidence of left or right lower extremity deep venous thrombosis.
[2021-07-11 10:03] LABS: Magnesium 2.1 mg/dL (1.8-2.4); Potassium 3.7 mmol/L (3.5-5.1)
--- NOTE | 2021-07-11 10:13 | ER ---
Nurse's Notes [facility] Name: Cindi Cruz Age: 31 yrs Sex: Female : 1990 Arrival Date: 07/11/2021 Time: 08:32 Bed 18 Private MD: Diagnosis: Pain in left leg;Pain in right leg;Arthralgias Presentation: 07/11 08:41 Chief complaint: Patient states: has excruciating pain in sree legs, COVID + X 10 days, iw has had joint pain but leg pain got worse last night, worse on right leg. Coronavirus screen: Client presents with at least one sign or symptom that may indicate coronavirus-19. Client reports previous positive COVID test result. Ebola Screen: Patient negative for fever greater than or equal to 101.5 degrees Fahrenheit, and additional compatible Ebola Virus Disease symptoms Patient denies exposure to infectious person. Patient denies travel to an Ebola-affected area in the 21 days before illness onset. No symptoms or risks identified at this time. Initial Sepsis Screen: Does the patient meet any 2 criteria? No. Patient's initial sepsis screen is negative. Does the patient have a suspected source of infection? No. Patient's initial sepsis screen is negative. Risk Assessment: Do you want to hurt yourself or someone else? Patient reports no desire to harm self or others. Onset of symptoms was July 01, 2021. 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 - Social history:: Smoking status: Patient denies any tobacco usage or history of. Screenin:49 Abuse screen: Denies threats or abuse. Denies injuries from another. Nutritional jl7 screening: No deficits noted. Tuberculosis screening: No symptoms or risk factors identified. 09:14 Fall Risk IV access (20 points). Total Bragg Fall Scale indicates No Risk (0-24 pts). jl7 Assessment: 08:49 General: Appears in no apparent distress. uncomfortable, Behavior is cooperative, jl7 anxious. Pain: Complains of pain in SREE lower extremities, mostly in joints, right knee is wrost Pain currently is 10 out of 10 on a pain scale. Quality of pain is described as throbbing. Neuro: Level of Consciousness is awake, alert, obeys commands, Oriented to person, place, time, situation. Cardiovascular: Patient's skin is warm and dry. Respiratory: Airway is patent Respiratory effort is even, unlabored, Respiratory pattern is regular, symmetrical. Derm: Skin is pink, warm \T\ dry. Musculoskeletal: Range of motion: intact in all extremities. Vital Signs: 08:41 BP 102 / 62; Pulse 91; Resp 16; Temp 97.2; Pulse Ox 100% on R/A; Weight 79.38 kg; iw Height 5 ft. 7 in. (170.18 cm); Pain 10/10; 08:41 Body Mass Index 27.41 (79.38 kg, 170.18 cm) iw ED Course: 08:32 Patient arrived in ED. as 08:43 Triage completed. iw 08:48 Juan C Mckeon PA is PHCP. jr8 08:48 Rupesh Alexander MD is Attending Physician. jr8 08:48 Jia Bright, JAYDON is Primary Nurse. jl7 08:49 Patient has correct armband on for positive identification. Bed in low position. Call jl7 light in reach. Side rails up X 1. 09:00 Arm band placed on right wrist. ap3 09:13 Initial lab(s) drawn, by mi, sent to lab. Inserted saline lock: 20 gauge in right jl7 wrist, using aseptic technique. Blood collected. 09:45 US Extremity Venous W Compression Sree In Process Unspecified. EDMS 10:33 No provider procedures requiring assistance completed. IV discontinued, intact, ap3 bleeding controlled, No redness/swelling at site. Pressure dressing applied. Administered Medications: 10:33 Drug: Ketorolac 15 mg Route: IVP; Site: right hand; ap3 10:35 Follow up: Response: No adverse reaction; Pain is decreased ap3 Outcome: 10:13 Discharge ordered by . jr8 10:34 Discharged to home via wheelchair, with family. ap3 10:34 Condition: good 10:34 Discharge instructions given to patient, family, Instructed on discharge instructions, follow up and referral plans. medication usage, Demonstrated understanding of instructions, follow-up care, medications, Prescriptions given X 1. 10:34 Patient left the ED. ap3 Signatures: Dispatcher [employer] EDRuth Philip Irene, RN RN iw Juan C Mckeon PA PA jr8 Leal, Jahala, RN RN jl7 Rylee Muller RN RN ap3
--- NOTE | 2021-07-11 10:13 | EDPHYS ---
Physician Documentation [facility] Name: Cindi Cruz Age: 31 yrs Sex: Female : 1990 Arrival Date: 07/11/2021 Time: 08:32 Bed 18 Private MD: MENDEL Physician Rupesh Alexander HPI: 07/11 10:05 This 31 yrs old Female presents to ER via Wheelchair with complaints of Leg jr8 Pain. 10:09 Onset: The symptoms/episode began/occurred acutely, last night. Modifying factors: The jr8 symptoms are alleviated by nothing. Associated signs and symptoms: The patient has no apparent associated signs or symptoms. Severity of symptoms: At their worst the symptoms were moderate, in the emergency department the symptoms are unchanged. The patient has not experienced similar symptoms in the past. This is a 31-year-old female with a recent recovering history of Covid. Stated that she has had constant arthralgias since the start of Covid mostly has improved but last night started to have extreme pain in the knees worse on right than left extending down through the legs.. 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 - Social history:: Smoking status: Patient denies any tobacco usage or history of. ROS: 10:09 Eyes: Negative for injury, pain, redness, and discharge, ENT: Negative for injury, jr8 pain, and discharge, Neck: Negative for injury, pain, and swelling, Cardiovascular: Negative for chest pain, palpitations, and edema, Respiratory: Negative for shortness of breath, cough, wheezing, and pleuritic chest pain, Abdomen/GI: Negative for abdominal pain, nausea, vomiting, diarrhea, and constipation, Back: Negative for injury and pain, Skin: Negative for injury, rash, and discoloration, Neuro: Negative for headache, weakness, numbness, tingling, and seizure. 10:09 MS/extremity: Positive for pain, of the right leg and left leg. Exam: 10:09 Constitutional: This is a well developed, well nourished patient who is awake, alert, jr8 and in no acute distress. Cardiovascular: Regular rate and rhythm with a normal S1 and S2. No gallops, murmurs, or rubs. Normal PMI, no JVD. No pulse deficits. Respiratory: Lungs have equal breath sounds bilaterally, clear to auscultation and percussion. No rales, rhonchi or wheezes noted. No increased work of breathing, no retractions or nasal flaring. Abdomen/GI: Soft, non-tender, with normal bowel sounds. No distension or tympany. No guarding or rebound. No evidence of tenderness throughout. Back: No spinal tenderness. No costovertebral tenderness. Full range of motion. Skin: Warm, dry with normal turgor. Normal color with no rashes, no lesions, and no evidence of cellulitis. Neuro: Awake and alert, GCS 15, oriented to person, place, time, and situation. Cranial nerves II-XII grossly intact. Motor strength 5/5 in all extremities. Sensory grossly intact. Cerebellar exam normal. 10:09 Musculoskeletal/extremity: ROM: intact in all extremities, full active range of motion, full passive range of motion, limited active range of motion due to pain, in the right leg and left leg, limited passive range of motion due to pain, in the right leg and left leg, Circulation is intact in all extremities. Pulses: noted to be 3+ in the right radial artery, right posterior tibial artery, right dorsalis pedis artery, left radial artery, left posterior tibial artery and left dorsalis pedis artery, Sensation intact. Vital Signs: 08:41 BP 102 / 62; Pulse 91; Resp 16; Temp 97.2; Pulse Ox 100% on R/A; Weight 79.38 kg; iw Height 5 ft. 7 in. (170.18 cm); Pain 08/06; 08:41 Body Mass Index 27.41 (79.38 kg, 170.18 cm) iw MDM: 08:49 Patient medically screened. [facility] 10:09 Data reviewed: vital signs, nurses notes, lab test result(s), radiologic studies, [facility] ultrasound. Data interpreted: Pulse oximetry: on room air is 100 %. Interpretation: normal. Counseling: I had a detailed discussion with the patient and/or guardian regarding: the historical points, exam findings, and any diagnostic results supporting the discharge/admit diagnosis, lab results, radiology results, the need for outpatient follow up, a family practitioner, to return to the emergency department if symptoms worsen or persist or if there are any questions or concerns that arise at home. ED course: Discussed with patient that this does not appear to be neuropathic pain at this time. No arterial or venous abnormalities on ultrasound and with physical exam. Electrolytes unremarkable. Most likely persistent arthralgias secondary to Covid. Will start on anti-inflammatory to see how she does. If you start to run fever or have any other symptoms to come back to the emergency room for further evaluation. Otherwise needs to follow-up with her PCP in the next couple of days. Patient good with plan at this time.. 07/11 09:00 Order name: CBC with Diff jr8 07/11 09:00 Order name: Basic Metabolic Panel; Complete Time: 10:08 8 07/11 09:00 Order name: US Extremity Venous W Compression Renaldo; Complete Time: 10:08 8 07/11 09:00 Order name: Magnesium; Complete Time: 10:8 07/11 09:01 Order name: CBC with Automated Diff; Complete Time: 10:08 EDMS 07/11 09:00 Order name: IV; Complete Time: :13 Administered Medications: 10:33 Drug: Ketorolac 15 mg Route: IVP; Site: right hand; ap3 10:35 Follow up: Response: No adverse reaction; Pain is decreased ap3 Disposition: 07/12 06:39 Co-signature as Attending Physician, Rupesh Alexander MD I agree with the assessment and ingrid plan of care. Disposition Summary: 07/11/21 10:13 Discharge Ordered Location: Home jr8 Problem: new jr8 Symptoms: have improved jr8 Condition: Stable jr8 Diagnosis - Pain in left leg jr8 - Pain in right leg jr8 - Arthralgias jr8 Followup: jr8 - With: Private Physician - When: 2 - 3 days - Reason: Recheck today's complaints, Continuance of care, Re-evaluation by your physician Discharge Instructions: - Discharge Summary Sheet jr8 - Musculoskeletal Pain jr8 Forms: - Medication Reconciliation Form jr8 - Thank You Letter jr8 - Antibiotic Education jr8 - Prescription Opioid Use jr8 Prescriptions: - meloxicam 15 mg Oral tablet - take 1 tablet by ORAL route once daily As needed; 20 tablet; Refills: 0, jr8 Product Selection Permitted Signatures: Dispatcher [employer] Rupesh Gonzalez MD MD cha Williams, Irene RN RN Juan C Bentley PA PA jr8 Rylee Muller RN RN ap3
[2021-07-11 10:42] VITALS: BP 102/62; TEMP 97.2; O2SAT 100
[2021-07-11] MEDS ORDERED: KETOROLAC 30 MG/ML INJ ONE (10:46)
== END 2021-07-11 10:34 | disposition home or self-care (01) ==
LOC: ER 08:28
DX: M79.605 Pain in left leg (principal); M79.604 Pain in right leg; Z88.0 Allergy status to penicillin; Z88.8 Allergy status to other drugs, medicaments and biological substances; Z86.16 Personal history of COVID-19
CPT/HCPCS: 36415; 80048; 83735; 85025; 93970; 96374; 99284